=== PATIENT | female | born 1965 | race Caucasian/White ===

== ENCOUNTER 2024-05-04 13:38 | Inpatient (IN) | payer MEDICARE, MEDICAID ==
[2024-05-04 14:24] LABS: #Basophils 0.04 10x3/uL (0.0-0.2); %Basophils 0.4 % (0.0-1.0); %Eosinophils 0.4 % (0.0-10.0); %Lymphocytes 13.6 % (21.0-51.0); %Monocytes 5.4 % (0.0-10.0); %Neutrophils 79.5 % (42.0-75.0); Hematocrit 29.7 % (36.0-47.0); Hemoglobin 8.8 g/dL (12.0-16.0); Mean Corpuscular HGB CONC 29.6 g/dL (32.0-36.0); Mean Corpuscular Hemoglobin 20.7 pg (27.0-31.0); Mean Corpuscular Volume 69.9 fL (78.0-98.0); Mean Platelet Volume 9.6 fL (7.4-10.4); Platelet Count 219 10x3/uL (130-400); RBC Distribution Width 19.2 % (11.5-14.5); Red Blood Cell (RBC) Count 4.25 mill/uL (4.20-5.40)
[2024-05-04 14:38] LABS: ALT (SGPT) 14 U/L (8-55); AST (SGOT) 12 U/L (5-34); Albumin 3.3 g/dL (3.5-5.0); Alkaline Phosphatase 54 U/L (40-110); Anion Gap 12 mmol/L (10-20); BUN (Urea Nitrogen) 22 mg/dL (9.8-20.1); Bilirubin, Total 0.2 mg/dL (0.2-1.2); Calc. Creatinine Clearance 0 mL/min (70-130); Calcium 8.4 mg/dL (7.8-10.44); Carbon Dioxide 23 mmol/L (22-29); Chloride 106 mmol/L (98-107); Estimated GFR 83; Globulin 2.9 g/dL (2.4-3.5); Glucose 185 mg/dL (70-105); Lipase 23 U/L (8-78); Potassium 3.7 mmol/L (3.5-5.1); Protein, Total 6.2 g/dL (6.0-8.3); Sodium 137 mmol/L (136-145)
[2024-05-04] MEDS ORDERED: Ipratropium/Albuterol 3 ML NEB ONE (14:39)
[2024-05-04] MEDS ORDERED: predniSONE 20 MG TAB ONE (14:39)
[2024-05-04] MEDS ORDERED: Magnesium 2 GM/50 ML BAG (IN WATER) ONE (14:40)
[2024-05-04 14:42] LABS: Troponin I Less than 0.010 ng/mL (< 0.028)
[2024-05-04 14:50] LABS: Anisocytosis MODERATE=16-30 cells HPF (0-5); Microcytosis SLIGHT = 6-15 cells HPF (0-5); Ovalocytes SLIGHT = 2-5 cells HPF (0-1); Platelet Adequacy Comment Platelets Normal; Polychromasia SLIGHT = 2-3 cells HPF (0-2); Tear Drops SLIGHT = 2-5 cells HPF (0-1)
[2024-05-04] MEDS ORDERED: Furosemide 40 MG (4 mL) VIAL ONE (15:17)
[2024-05-04] MEDS ORDERED: Dextrose 5% in Water 1,000 ML IV PRN (15:29)
[2024-05-04] MEDS ORDERED: Dextrose 50% Abboject 50 ML SYRINGE SLOW IVP PRN (15:29)
[2024-05-04] MEDS ORDERED: Glucagon 1 MG/ML KIT IM PRN (15:29)
[2024-05-04] MEDS ORDERED: Ondansetron ODT 4 MG TAB PO PRN (15:29)
[2024-05-04 16:37] LABS: Iron 18 ug/dL (50-170); Iron Binding Capacity, Total 453 mcg/dL (265-497)
[2024-05-04] MEDS: Ferrous Sulfate 325 MG TAB PO SCH (18:11)
[2024-05-04 18:25] VITALS: BMI 54.8
[2024-05-04] MEDS: Ipratropium/Albuterol 3 ML NEB NEB SCH (18:26)
[2024-05-04 18:37] LABS: Troponin I 0.011 ng/mL (< 0.028)
[2024-05-04 20:48] LABS: Troponin I Less than 0.010 ng/mL (< 0.028)
[2024-05-04] MEDS: Insulin Glargine 30 UNITS/0.3 ML VIAL SC SCH (21:40)
[2024-05-04] MEDS: tiZANidine HCl 4 MG TAB PO SCH (23:16)
[2024-05-05] MEDS: Furosemide 40 MG (4 mL) VIAL SLOW IVP SCH (06:28)
[2024-05-05 06:44] LABS: #Basophils 0.03 10x3/uL (0.0-0.2); #Eosinophils Less than 0.03 10x3/uL (0.0-0.7); %Basophils 0.3 % (0.0-1.0); %Eosinophils 0.1 % (0.0-10.0); %Lymphocytes 11.4 % (21.0-51.0); %Monocytes 3.9 % (0.0-10.0); %Neutrophils 83.5 % (42.0-75.0); Hematocrit 33.7 % (36.0-47.0); Hemoglobin 9.3 g/dL (12.0-16.0); Mean Corpuscular HGB CONC 27.6 g/dL (32.0-36.0); Mean Corpuscular Hemoglobin 20.4 pg (27.0-31.0); Mean Corpuscular Volume 74.1 fL (78.0-98.0); Mean Platelet Volume 9.3 fL (7.4-10.4); Platelet Count 150 10x3/uL (130-400); RBC Distribution Width 19.2 % (11.5-14.5); Red Blood Cell (RBC) Count 4.55 mill/uL (4.20-5.40)
[2024-05-05 06:54] LABS: Anion Gap 15 mmol/L (10-20); BUN (Urea Nitrogen) 18 mg/dL (9.8-20.1); Calc. Creatinine Clearance 186 mL/min (70-130); Carbon Dioxide 20 mmol/L (22-29); Cardiac Risk 2.8 (Less than 4.5); Chloride 104 mmol/L (98-107); Cholesterol 172 mg/dl (< 200 Desired); Estimated GFR 100; Glucose 153 mg/dL (70-105); HDL Cholesterol 62 mg/dL (>60 Neg Risk); LDL Cholesterol, Calculated 89 mg/dL; Potassium 3.9 mmol/L (3.5-5.1); Sodium 135 mmol/L (136-145); Triglycerides 103 mg/dL (Less than 150)
[2024-05-05] MEDS: predniSONE 20 MG TAB PO SCH (08:56)
[2024-05-05] MEDS: Lisinopril 10 MG TAB PO SCH (08:56)
[2024-05-05] MEDS: Pantoprazole DR 40 MG TAB PO SCH (08:58)
[2024-05-05] MEDS: Enoxaparin 40 MG (0.4 mL) SYRINGE SC SCH (08:59)
[2024-05-05] MEDS ORDERED: Nitroglycerin 0.4 MG TAB (25 Tab Bottle) SL PRN (14:41)
[2024-05-05] MEDS ORDERED: Albuterol 2.5 MG (3 mL) NEB NEB PRN (14:41)
[2024-05-05] MEDS ORDERED: Albuterol 200 PUFF (6.7GM INHALER) INH PRN (14:41)
[2024-05-05] MEDS ORDERED: Ipratropium/Albuterol 3 ML NEB NEB PRN (14:41)
[2024-05-05] MEDS: Sodium Ferric Gluconate 250 MG in Sodium Chloride 0.9% 250 ML 250 ML IVPB SCH (14:43)
[2024-05-05] MEDS: Nitroglycerin 0.4 MG TAB (25 Tab Bottle) SL PRN (16:31)
[2024-05-05] MEDS: Sucralfate 1 GM TAB PO SCH (16:31)
[2024-05-05] MEDS: Acetaminophen/Codeine 30-300mg Tablet PO PRN (17:06)
[2024-05-05] MEDS: Insulin Regular, Human 100 UNIT/ML 10 ML VIAL SC PRN (18:41)
[2024-05-05] MEDS ORDERED: Mometasone 100 MCG/Formoterol 5 MCG 120 PUFF INHALER INH PRN (20:06)
[2024-05-05] MEDS ORDERED: Lisinopril 5 MG TAB PO SCH (21:00)
[2024-05-05] MEDS: tiZANidine HCl 4 MG TAB PO SCH (21:37)
[2024-05-05] MEDS: Aripiprazole 15 MG TAB PO SCH (21:37)
[2024-05-05] MEDS: Sertraline 100 MG TAB PO SCH (21:38)
[2024-05-05] MEDS: Ranolazine ER 500 MG TAB PO SCH (21:38)
[2024-05-05] MEDS: busPIRone HCl 10 MG TAB PO SCH (21:38)
[2024-05-05] MEDS: Rosuvastatin 20 MG TAB PO SCH (21:38)
[2024-05-05] MEDS: Allopurinol 100 MG TAB PO SCH (21:39)
[2024-05-05] MEDS: Isosorbide Mononitrate 30 MG ER.TAB PO SCH (21:39)
[2024-05-05] MEDS: Insulin Glargine 30 UNITS/0.3 ML VIAL SC SCH (21:49)
[2024-05-06 05:31] LABS: #Basophils 0.03 10x3/uL (0.0-0.2); %Basophils 0.3 % (0.0-1.0); %Eosinophils 0.3 % (0.0-10.0); %Lymphocytes 14.1 % (21.0-51.0); %Monocytes 5.8 % (0.0-10.0); %Neutrophils 78.9 % (42.0-75.0); Hematocrit 32.3 % (36.0-47.0); Hemoglobin 9.1 g/dL (12.0-16.0); Mean Corpuscular HGB CONC 28.2 g/dL (32.0-36.0); Mean Corpuscular Hemoglobin 20.3 pg (27.0-31.0); Mean Corpuscular Volume 72.1 fL (78.0-98.0); Mean Platelet Volume 9.3 fL (7.4-10.4); Platelet Count 236 10x3/uL (130-400); Red Blood Cell (RBC) Count 4.48 mill/uL (4.20-5.40)
[2024-05-06] MEDS: Levothyroxine Sodium 75 MCG TAB PO SCH (05:43)
[2024-05-06 05:44] LABS: ALT (SGPT) 11 U/L (8-55); AST (SGOT) 9 U/L (5-34); Albumin 3.3 g/dL (3.5-5.0); Alkaline Phosphatase 51 U/L (40-110); Anion Gap 14 mmol/L (10-20); BUN (Urea Nitrogen) 22 mg/dL (9.8-20.1); Bilirubin, Total 0.3 mg/dL (0.2-1.2); Calc. Creatinine Clearance 181 mL/min (70-130); Calcium 9.1 mg/dL (7.8-10.44); Carbon Dioxide 29 mmol/L (22-29); Chloride 101 mmol/L (98-107); Estimated GFR 99; Glucose 190 mg/dL (70-105); Potassium 3.6 mmol/L (3.5-5.1); Protein, Total 6.3 g/dL (6.0-8.3); Sodium 140 mmol/L (136-145)
[2024-05-06] MEDS: Metolazone 2.5 MG TAB PO SCH (08:18)
[2024-05-06] MEDS: Aspirin Chewable 81 MG TAB PO SCH (08:18)
[2024-05-06] MEDS: Clopidogrel Bisulfate 75 MG TAB PO SCH (08:18)
[2024-05-06] MEDS: AcetaZOLAMIDE 250 MG TAB PO SCH (08:18)
[2024-05-06] MEDS: Pantoprazole DR 40 MG TAB PO SCH (08:18)
[2024-05-06] MEDS: Insulin Lispro 100 UNIT/ML 10 ML VIAL SQ SCH (08:19)
[2024-05-06] MEDS: predniSONE 20 MG TAB PO SCH (08:19)
[2024-05-06] MEDS: Spironolactone 100 MG TAB PO SCH (08:19)
[2024-05-06] MEDS: Triamcinolone 0.1% Cream 15 GM TUBE TOP SCH (08:20)
[2024-05-06] MEDS: Sodium Ferric Gluconate 250 MG in Sodium Chloride 0.9% 250 ML 250 ML IVPB SCH (11:38)
[2024-05-06] MEDS: Potassium Chloride 20 MEQ TAB PO SCH (15:00)
[2024-05-06] MEDS: Acetaminophen 325 MG TAB PO PRN (22:55)
[2024-05-07 04:50] LABS: #Basophils 0.03 10x3/uL (0.0-0.2); %Basophils 0.3 % (0.0-1.0); %Eosinophils 0.5 % (0.0-10.0); %Lymphocytes 17.2 % (21.0-51.0); %Monocytes 6.2 % (0.0-10.0); Hematocrit 34.7 % (36.0-47.0); Mean Corpuscular HGB CONC 28.8 g/dL (32.0-36.0); Mean Corpuscular Hemoglobin 20.7 pg (27.0-31.0); Platelet Count 242 10x3/uL (130-400); RBC Distribution Width 19.1 % (11.5-14.5); Red Blood Cell (RBC) Count 4.82 mill/uL (4.20-5.40)
[2024-05-07 04:59] LABS: Anion Gap 13 mmol/L (10-20); BUN (Urea Nitrogen) 23 mg/dL (9.8-20.1); Calc. Creatinine Clearance 156 mL/min (70-130); Calcium 9.3 mg/dL (7.8-10.44); Carbon Dioxide 29 mmol/L (22-29); Chloride 98 mmol/L (98-107); Estimated GFR 87; Glucose 237 mg/dL (70-105); Potassium 3.7 mmol/L (3.5-5.1); Sodium 136 mmol/L (136-145)
[2024-05-07] MEDS: Ferrous Sulfate 325 MG TAB PO SCH (09:00)
[2024-05-07 12:31] VITALS: BP 126/60; TEMP 98.8
== END 2024-05-07 13:35 | disposition home health service (06) | DRG 291 ==
LOC: ERS 13:38 → 2NO 15:24 → OBSVTOIN 05-06 17:13
PROVIDERS: ADMIT Internal Medicine; ATTEND Hospitalist
PROC: 5A09357 Assistance with Respiratory Ventilation, Less than 24 Consecutive Hours, Continuous Positive Airway Pressure (ICD-10-PCS; principal; 2024-05-07)
DX: I11.0 Hypertensive heart disease with heart failure (principal); I50.33 Acute on chronic diastolic (congestive) heart failure; J96.21 Acute and chronic respiratory failure with hypoxia; J44.1 Chronic obstructive pulmonary disease with (acute) exacerbation; Z68.43 Body mass index [BMI] 50.0-59.9, adult; E11.9 Type 2 diabetes mellitus without complications; D50.9 Iron deficiency anemia, unspecified; F41.9 Anxiety disorder, unspecified; F32.A Depression, unspecified; E78.5 Hyperlipidemia, unspecified; I27.20 Pulmonary hypertension, unspecified; E66.01 Morbid (severe) obesity due to excess calories; G47.33 Obstructive sleep apnea (adult) (pediatric); I44.0 Atrioventricular block, first degree; Z91.048 Other nonmedicinal substance allergy status; Z88.8 Allergy status to other drugs, medicaments and biological substances; Z90.89 Acquired absence of other organs; Z90.710 Acquired absence of both cervix and uterus; Z79.82 Long term (current) use of aspirin; Z79.899 Other long term (current) drug therapy; Z79.4 Long term (current) use of insulin; I35.0 Nonrheumatic aortic (valve) stenosis
CPT/HCPCS: 36415; 36416; 71045; 80048; 80053; 80061; 82728; 83540; 83550; 83690; 83880; 84484; 85025; 93005; 93306; 94640; 94760; 96365; 96372; 96375; 96376; G0378; J1650; J1815; J1940; J2916; J3475; J7050; J7512; J7620